=== PATIENT | female | born 1985 | race Caucasian/White ===

== ENCOUNTER 2016-09-15 11:37 | Emergency (ER) | payer OTHER ==
[2016-09-15 11:55] VITALS: BP 125/70; PULSE 74; RESP 18; TEMP 97.7; O2SAT 99
--- NOTE | 2016-09-15 12:00 | UCPHY ---
H & P Patient Type: New Chief Complaint Nursing Narrative: states removing cup of hot water from microwave at work and splashed her fingers. blisters to dorsal surface of r index and middle fingers, redness only to ring finger Time Seen by Provider: 09/15/16 11:51 HPI/ROS: CHIEF COMPLAINT: Burn HISTORY OF PRESENT ILLNESS: The patient is a 31-year-old female who comes to the Urgent Care complaining of burn to her right hand. She spilled hot tea on herself. It is on the dorsal part of her hand only. No visible blistering. Normal range of motion and sensation. REVIEW OF SYSTEMS: Constitutional: denies: chills, fever, recent illness, recent injury EENTM: denies: blurred vision, double vision, nose congestion Respiratory: denies: cough, shortness of breath Cardiac: denies: chest pain, irregular heart rate, lightheadedness, palpitations Gastrointestinal/Abdominal: denies: abdominal pain, diarrhea, nausea, vomiting, blood streaked stools Genitourinary: denies: dysuria, frequency, hematuria, pain Musculoskeletal: denies: joint pain, muscle pain Skin: See HPI Neurological: denies: headache, numbness, paresthesia, tingling, dizziness, weakness Hematologic/Lymphatic: denies: blood clots, easy bleeding, easy bruising Immunologic/allergic: denies: HIV/AIDS, transplant EXAM: GENERAL: Well-appearing, well-nourished and in no acute distress. HEAD: Atraumatic, normocephalic. EYES: Pupils equal round and reactive to light, extraocular movements intact, sclera anicteric, conjunctiva are normal. ENT: TMs normal, nares patent, oropharynx clear without exudates. Moist mucous membranes. NECK: Normal range of motion, supple without lymphadenopathy or JVD. LUNGS: Breath sounds clear to auscultation bilaterally and equal. No wheezes rales or rhonchi. HEART: Regular rate and rhythm without murmurs, rubs or gallops. ABDOMEN: Soft, nontender, normoactive bowel sounds. No guarding, no rebound. No masses appreciated. BACK: No CVA tenderness, no spinal tenderness, step-offs or deformities EXTREMITIES: Normal range of motion, no pitting or edema. No clubbing or cyanosis. NEUROLOGICAL: Cranial nerves II through XII grossly intact. Normal speech, normal gait. 5/5 strength, normal movement in all extremities, normal sensation PSYCH: Normal mood, normal affect. SKIN: See diagram Source: Patient Exam Limitations: No limitations - Personal History LMP (Females 10-55): 22-28 Days Ago - Medical/Surgical History Hx Asthma: No Hx Chronic Respiratory Disease: No Hx Diabetes: No Hx Cardiac Disease: No Hx Renal Disease: No Hx Cirrhosis: No Other PMH: anxiety - Family History Significant Family History: No pertinent family hx - Social History Smoking Status: Never smoked Alcohol Use: None Drug Use: None Constitutional: Initial Vital Signs Temperature (C) 36.5 C 09/15/16 11:51 Heart Rate 74 09/15/16 11:51 Respiratory Rate 18 09/15/16 11:51 Blood Pressure 125/70 H 09/15/16 11:51 O2 Sat (%) 99 09/15/16 11:51 O2 Delivery Mode Room Air Allergies/Adverse Reactions: No Known Allergies Allergy (Unverified 09/15/16 11:50) Home Medications: Medication Instructions Recorded Bcp 09/15/16 Sertraline HCl 09/15/16 ED Images - Extremities Hands Back Left/Right: 1 - 2nd degree burn with very minor blistering 2 - 1st May be early second-degree burn 3 - 1st degree burn Medical Decision Making ED Course/Re-evaluation: The patient has a very minor burn to the dorsum of her right finger. Minimal joint involvement, non circumferential. 1st maybe some second-degree oliveira. I will treat her with bacitracin and sterile dressing. I instructed her to keep them moist and follow up with her regular doctor. We discussed pain control. The patient understands and agrees with this plan. She declines further workup or testing at this time. Differential Diagnosis: Partial list of the Differential diagnosis considered include but were not limited to; first-degree burn, second-degree burn, and although unlikely based on the history and physical exam, I also considered third-degree burn, non accidental trauma, infection, foreign body. I discussed these differential diagnoses and the plan with the patient as well as the usual and expected course. The patient understands that the diagnosis is provisional and that in medicine we are not always correct and that further workup is often warranted. Usual and customary warnings were given. All of the patient's questions were answered. The patient was instructed to return to the emergency department should the symptoms at all worsen or return, otherwise to followup with the physician as we discussed. Departure - Departure Disposition: Home, Routine, Self-Care Clinical Impression: Burn Condition: Fair Instructions: Second Degree Burn (ED) Referrals: Anne-Marie Stubbs MD [Primary Care Provider] - As per Instructions - PQRS PQRS Measurement: Not applicable
== END 2016-09-15 12:17 | disposition home or self-care (01) ==
LOC: CED 11:37
DX: T23.231A Burn of second degree of multiple right fingers (nail), not including thumb, initial encounter (principal); X10.0XXA Contact with hot drinks, initial encounter; Y93.G1 Activity, food preparation and clean up; Y99.0 Civilian activity done for income or pay; T31.0 Burns involving less than 10% of body surface
CPT/HCPCS: G0463-PO